=== PATIENT | female | born 1935 | race Caucasian/White ===

== ENCOUNTER 2016-04-12 18:14 | Inpatient (IN) ==
[2016-04-12] MEDS ORDERED: Albuterol 2.5 MG/3 ML NEBULIZER IH ONE (18:59)
--- NOTE | 2016-04-12 19:02 | Emergency Department Note ---
Disposition Clinical Impression: Hypokalemia Pneumonia Qualifiers: Pneumonia type: due to unspecified organism Laterality: right Lung location: lower lobe of lung Qualified Code(s): J18.1 - Lobar pneumonia, unspecified organism Disposition: Admitted As Inpatient Condition: Good Referrals: NO,PCP [Primary Care Provider] - Forms: ED Satisfaction Letter Time of Disposition: 20:05 URI/Sore Throat HPI - General Chief Complaint: ED Upper Respiratory Infection Stated Complaint: Cough, possible pneumonia Time Seen by Provider: 04/12/16 18:55 Source: patient, family Mode of arrival: ambulatory Limitations: no limitations, other Nursing Notes Reviewed: Yes Vital Signs Reviewed: Yes - History of Present Illness HPI Narrative: 80-year-old female with a 1-1/2 week history of a persistent cough and difficulty breathing. She short of breath with exertion. She said some wheezing. No chest pain. She has felt feverish at home. She is coughing up some clear sputum. She was seen in urgent care, told she had pneumonia, was told to come here for evaluation and treatment. Pt Subjective Complaint: fever, cough Onset (ago): week(s) (1.5) Duration: constant Severity: moderate Improves with: nothing Worsens with: other (Coughing) If sputum, description: clear Associated symptoms: Reports: fever Treatments prior to arrival: other (Albuterol at the care) - Related Data Home Medications Medication Instructions Recorded Confirmed Aspirin [Adult Low Dose Aspirin EC] 81 mg PO DAILY 02/25/15 04/12/16 Atorvastatin Calcium [Lipitor] 20 mg PO DAILY 02/25/15 04/12/16 Clopidogrel [Plavix] 75 mg PO DAILY 02/25/15 04/12/16 Multivitamin [Multivitamins] 1 each PO DAILY 02/25/15 04/12/16 NIFEdipine [Adalat cc] 90 mg PO DAILY 02/25/15 04/12/16 Paroxetine HCl [Paroxetine HCl] 20 mg PO DAILY 02/25/15 04/12/16 Potassium Gluconate [Potassium] 99 mg PO 3XW 02/25/15 04/12/16 Paroxetine [Paxil] 20 mg PO DAILY 04/12/16 04/12/16 Vit C/E/Zn/Coppr/Lutein/Zeaxan 04/12/16 [Preservision Areds 2 Softgel] Allergies Allergy/AdvReac Type Severity Reaction Status Date / Time metoprolol [From Toprol XL] Allergy Nausea Verified 04/12/16 17:24 All systems ED: reviewed and negative except as stated. Constitutional: Reports: fever, chills Eyes: Denies: eye discharge ENT ED: Denies: ear pain, throat pain Cardiovascular: Denies: chest pain Respiratory: Reports: cough, dyspnea, wheezes, sputum production (Clear) Gastrointestinal: Denies: abdominal pain, nausea, vomiting, diarrhea Genitourinary: Denies: urgency, dysuria, frequency Integumentary: Denies: rash URI PMH - Past Medical History Medical history: Reports: hyperlipidemia, hypertension, TIA Surgical history: Reports: cholecystectomy, KALPANA/BSO, other Psychiatric history: Reports: anxiety Family history: Reports: no significant family history - Social History Smoking Status: Never smoker Alcohol use: Reports: none Drug use: Reports: none Physical Exam - General Limitations: no limitations, other General appearance: alert, in no apparent distress - Head Head exam: atraumatic, normocephalic - Eye Eye exam: Present: PERRL, EOMI. Absent: scleral icterus, conjunctival injection - ENT ENT exam: normal oropharynx, mucous membranes moist, TM's normal bilaterally - Neck Neck exam: Present: normal inspection, full ROM, trachea midline. Absent: tenderness, lymphadenopathy - Chest Chest inspection: Present: normal inspection, symmetric chest wall rise - Respiratory Respiratory exam: Present: wheezes (Mild bilateral expiratory), other (No rales or rhonchi). Absent: respiratory distress, accessory muscle use, prolonged expiratory phase - Cardiovascular Cardiovascular exam: Present: regular rate, normal rhythm, normal heart sounds - Abdominal Exam Abdominal exam: Present: soft, Non-Tender. Absent: organomegaly, mass - Extremities Exam Extremities exam: Present: normal inspection, full ROM, normal capillary refill. Absent: pedal edema, calf tenderness - Neurological Exam Neurological exam: Present: alert, oriented X3, normal gait - Psychiatric Psychiatric exam: Present: normal affect, normal mood - Skin Skin exam: Present: warm, dry, intact. Absent: cyanosis Course - Reevaluation(s) Reevaluation #1: Discussed with Dr. Webster. He accepts for admission. Time: 20:00 Vital Signs Temperature 100 F H 04/12/16 18:22 Pulse Rate 99 04/12/16 18:22 Respiratory Rate 19 02/19/17 18:22 Blood Pressure 137/74 04/12/16 18:22 O2 Sat by Pulse Oximetry 91 L 04/12/16 18:22 Temperature 100 F H 04/12/16 18:23 Pulse Rate 99 04/12/16 18:23 Respiratory Rate 16 04/12/16 19:14 Blood Pressure 137/74 04/12/16 18:23 O2 Sat by Pulse Oximetry 87 L 04/12/16 19:14 Oxygen Delivery Oxygen Delivery Room Air Upper Respiratory Infection - MDM Narrative Medical decision making narrative: Radiographically she has a right lower lobe infiltrate on the x-ray from urgent care. She is hypoxic with O2 sats around 89-90% on room air. She will require hospitalization. She is a community-acquired pneumonia. She was put on Rocephin and azithromycin. She was given hand-held nebulizers and Solu-Medrol for her bronchospasm. I spoke with Dr. Webster and he will admit. - Differential Diagnosis Differential Diagnosis: Likely: upper respiratory infection, sinusitis, other viral infection, bronchitis, influenza, pneumonia - Lab Data Lab results reviewed: Yes I reviewed the patient's lab results. Result diagrams: 04/12/16 19:05 04/12/16 19:05 Lab Results 04/12/16 04/12/16 Range/Units 19:05 19:05 WBC 15.8 H (4.3-11.1) K/mcL RBC 4.30 (3.82-4.97) M/mcL Hgb 13.2 (11.5-15.4) g/dL Hct 37.4 (35.3-44.9) % MCV 87.0 (83.0-100.0) fL MCH 30.7 (28.0-33.3) pg MCHC 35.3 (31.6-35.5) g/dL RDW 13.2 (11.5-14.5) % Plt Count 290 (140-400) K/mcL MPV 9.4 (9.4-12.4) fL Immature Gran % 0.7 (0-4) % Seg Neutrophils % 84.0 % Lymphocytes % 9.9 % Monocytes % 5.3 % Eosinophils % 0.0 % Basophils % 0.1 % Neutrophils # 13.3 H (1.6-8.9) K/mcL Lymphocytes # 1.6 (0.6-4.6) K/mcL Monocytes # 0.8 (0.0-1.3) K/mcL Eosinophils # 0.0 (0.0-0.6) K/mcL Basophils # 0.0 (0.0-0.2) K/mcL Sodium 139 (136-145) mEq/L Potassium 2.5 L* (3.5-4.5) mEq/L Chloride 99 (98-109) mEq/L Carbon Dioxide 23 (19-29) mEq/L BUN 28 H (7-20) mg/dL Creatinine 1.84 H (0.57-1.11) mg/dL Est GFR ( Amer) 32 L (> 60) Est GFR (Non-Af Amer) 26 L (> 60) BUN/Creatinine Ratio 15 (6-26) Glucose 169 H (70-99) mg/dL Calculated Osmolality 297 (280-300) Calcium 9.7 (8.6-10.8) mg/dL Total Bilirubin 1.0 (0.2-1.2) mg/dL AST 30 (5-34) Units/L ALT 26 (0-55) Units/L Alkaline Phosphatase 102 (38-126) Units/L Serum Total Protein 7.1 (6.0-8.3) g/dL Albumin 3.0 L (3.5-5.0) g/dL Globulin 4.1 H (2.4-3.5) g/dL Albumin/Globulin Ratio 0.7 L (1.1-2.2) - Radiology Data Radiology results reviewed: Yes I reviewed the patient's radiology results. Chest x-ray, 2 view, done at urgent care shows a right lower lobe infiltrate.
[2016-04-12 19:29] LABS: Basophils % 0.1 %; Hematocrit 37.4 % (35.3-44.9); Hemoglobin 13.2 g/dL (11.5-15.4); Immature Granulocytes % 0.7 % (0-4); Lymphocytes # 1.6 K/mcL (0.6-4.6); Lymphocytes % 9.9 %; Mean Corpuscular HGB Conc 35.3 g/dL (31.6-35.5); Mean Corpuscular Hemoglobin 30.7 pg (28.0-33.3); Mean Platelet Volume 9.4 fL (9.4-12.4); Monocytes # 0.8 K/mcL (0.0-1.3); Monocytes % 5.3 %; Platelet Count 290 K/mcL (140-400); Red Cell Distribution Width 13.2 % (11.5-14.5)
[2016-04-12 19:32] LABS: Neutrophils # 13.3 K/mcL (1.6-8.9)
[2016-04-12 19:47] LABS: Albumin/Globulin Ratio 0.7 (1.1-2.2); Calcium 9.7 mg/dL (8.6-10.8); Globulin 4.1 g/dL (2.4-3.5); Total Protein 7.1 g/dL (6.0-8.3)
[2016-04-12 19:49] LABS: Potassium 2.5 mEq/L (3.5-4.5)
[2016-04-12] MEDS ORDERED: CefTRIAXone 1,000 MG in D5% in Water (Mini-Bag+) 100 ML IVPB ONE (19:57)
[2016-04-12] MEDS ORDERED: Azithromycin 500 MG in D5% in Water 250 ML IVPB ONE ×2 (19:57→20:55)
[2016-04-12] MEDS ORDERED: Naloxone 0.4 MG/ML INJ IVP PRN (20:55)
[2016-04-12] MEDS ORDERED: Azithromycin 500 MG in D5% in Water 250 ML IVPB SCH (21:00)
[2016-04-12] MEDS ORDERED: Potassium Chloride Elixir 20 MEQ/15 ML UDC PO SCH (21:00)
[2016-04-12] MEDS ORDERED: Albuterol 2.5 MG/3 ML NEBULIZER ONE (23:03)
[2016-04-12] MEDS: Albuterol 2.5 MG/3 ML NEBULIZER IH SCH (23:04)
[2016-04-13] MEDS: Albuterol 2.5 MG/3 ML NEBULIZER IH SCH ×4 (04:23→21:54)
[2016-04-13] MEDS ORDERED: PredniSONE 20 MG TABLET PO SCH (09:00)
[2016-04-13] MEDS: Aspirin Enteric Coated 81 MG Tablet PO SCH (09:24)
[2016-04-13] MEDS: Multivit/Ca/Min/Fe/FA 1 TAB TABLET PO SCH (09:24)
[2016-04-13] MEDS: Potassium Chloride Elixir 20 MEQ/15 ML UDC PO SCH ×3 (09:26→21:12)
[2016-04-13] MEDS: NIFEdipine XL (24 HR) 30 MG TAB.ER.24 PO SCH (09:27)
[2016-04-13] MEDS: CefTRIAXone 1,000 MG in D5% in Water (Mini-Bag+) 100 ML IVPB SCH (09:29)
--- NOTE | 2016-04-13 15:48 | Internal Med History&Physical ---
Date of Encounter: 04/13/16 Time of Encounter: 15:15 Assessment and Plan (1) Pneumonia Current visit: Yes Status: Acute She has been started on Rocephin and Zithromax. I will add lactobacillus. Room air oximetry will be checked prior to discharge. Qualifiers: Pneumonia type: due to unspecified organism Laterality: right Lung location: middle lobe of lung Qualified Code(s): J18.1 - Lobar pneumonia, unspecified organism (2) CKD (chronic kidney disease) stage 3, GFR 30-59 ml/min Current visit: Yes Status: Acute We will monitor renal indices. (3) Hypertension Current visit: Yes Status: Chronic Continue nifedipine and monitor blood pressure. Qualifiers: Hypertension type: essential hypertension Qualified Code(s): I10 - Essential (primary) hypertension (4) Hypokalemia Current visit: Yes Status: Acute She does not take diuretic but does use a potassium supplement. She does know the specific diagnosis requiring supplemental KCl. Continue potassium supplementation and order follow-up labs. Internal Medicine - H&P: HPI Chief complaint: Dyspnea Admitted From: Home Plans for Post Hospital Care: Home History of present illness: Ms. Trinidad is a 80 year old female who came to emergency room stating she had increasing dyspnea over the past 10 days. She reports having a cough with minimal productivity. She had fevers and chills. She went to local urgent care where chest x-ray showed right middle lobe pneumonia. She she reports she had a negative test result for influenza. She was sent to emergency room and evaluated and admitted to [facility] floor for ongoing care needs. Her respiratory history is significant for being essentially a lifelong nonsmoker and having no documented chronic lung disease. She does not wear home oxygen. Past Med Surg Social Fam HX - Past Medical History Medical history: DVT, hyperlipidemia, hypertension, TIA Psychiatric history: anxiety - Past Surgical History Surgical History: cholecystectomy, hysterectomy, KALPANA/BSO, other - Social History Smoking Status: Never smoker Smokeless Tobacco Status: No Alcohol use: none Drug use: none - Family History Father Living Status: Hx Family Neurologic Disorders: Yes Internal Medicine - H&P: Meds Aspirin [Adult Low Dose Aspirin EC] 81 mg PO DAILY 02/25/15 [History] Atorvastatin Calcium [Lipitor] 20 mg PO DAILY 02/25/15 [History] Clopidogrel [Plavix] 75 mg PO DAILY 02/25/15 [History] Multivitamin [Multivitamins] 1 each PO DAILY 02/25/15 [History] NIFEdipine [Adalat cc] 90 mg PO DAILY 02/25/15 [History] Potassium Gluconate [Potassium] 99 mg PO 3XW 02/25/15 [History] Paroxetine [Paxil] 20 mg PO DAILY 04/12/16 [History] Vit C/E/Zn/Coppr/Lutein/Zeaxan [Preservision Areds 2 Softgel] PO QDPC 04/12/16 [History] Allergies metoprolol [From Toprol XL] Allergy (Verified 04/12/16 17:24) Nausea All Systems PM: A 10-system review of systems was performed and is negative for pertinent findings except as documented above in the HPI. Review of systems: Gen.: She states her weight is decreased 5 pounds in the past year Cardiovascular: She has history of hypertension. She reports a DVT 20 years ago in her leg. She denies ID heart failure or pulmonary embolism. Respiratory: As per history of present illness GI: She has had cholecystectomy. She denies disorders of her liver or exocrine pancreas. 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 She denies other kidney or bladder disorders Neurologic: She reports having "mini strokes" without permanent sequelae in the past. She denies large distribution strokes or seizures Endocrine: She was told she was "prediabetic". She has hyperlipidemia but denies thyroid disease Hematology/oncology: She denies blood disorders cancers or anemia Psychiatric: She has anxiety with panic attacks. She denies significant depression or other mental health issues Musk skeletal: She has DJD a diagnosis of osteoporosis. She denies gout or other bone joint or muscle disorders. - Constitutional Vitals: Temp Pulse Resp BP Pulse Ox 97.8 F 95 18 130/63 95 04/13/16 11:29 04/13/16 11:29 04/13/16 11:29 04/13/16 11:29 04/13/16 11:30 Exam: Gen.: She is a well-developed well-nourished female who appears in no severe distress at present time HEENT: Head is atraumatic and normocephalic. Eyes: EOMI. There is no scleral icterus. Mouth: Mucosa is moist. Neck: Supple and nontender. There is no thyromegaly or adenopathy noted. Heart: Regular without murmurs gallops or ectopics Lungs: No wheezes crackles or egophony are heard Abdomen: Soft and nontender. No masses or guarding are noted. Extremities: There is no cyanosis edema or clubbing noted. Dorsalis pedis and posttibial pulses are trace palpable bilaterally. Neurologic: Mental status: She is talkative and a good historian. Cranial nerves: Smile is symmetric. Forehead wrinkles bilaterally. Tongue protrudes midline. EOMI. Motor: There is no pronator drift. Cerebellar: Finger to nose is intact bilaterally. Skin: Warm and dry Internal Med - H&P Results - Labs CBC & Chem 7: 04/12/16 19:05 04/12/16 19:05 - VTE Documentation of Mechanical Device: Graduated compression elastic hosiery
[2016-04-13] MEDS: *HR* Enoxaparin 30 MG/0.3 ML SYRINGE SQ SCH (18:40)
[2016-04-13] MEDS ORDERED: Azithromycin 500 MG in D5% in Water 250 ML IVPB SCH (21:00)
[2016-04-13] MEDS: Lactobacillus 1 EACH CAP.SPRINK PO SCH (21:12)
[2016-04-14] MEDS: Albuterol 2.5 MG/3 ML NEBULIZER IH SCH ×2 (05:27→09:50)
[2016-04-14] MEDS: *HR* Enoxaparin 30 MG/0.3 ML SYRINGE SQ SCH (05:59)
[2016-04-14 06:01] LABS: Basophils % 0.2 %; Hematocrit 40.2 % (35.3-44.9); Hemoglobin 14.1 g/dL (11.5-15.4); Immature Granulocytes % 0.7 % (0-4); Lymphocytes # 1.2 K/mcL (0.6-4.6); Lymphocytes % 4.8 %; Mean Corpuscular HGB Conc 35.1 g/dL (31.6-35.5); Mean Corpuscular Hemoglobin 30.5 pg (28.0-33.3); Mean Corpuscular Volume 86.8 fL (83.0-100.0); Mean Platelet Volume 9.9 fL (9.4-12.4); Monocytes % 4.1 %; Neutrophils # 22.7 K/mcL (1.6-8.9); Platelet Count 399 K/mcL (140-400); Red Blood Count 4.63 M/mcL (3.82-4.97); Red Cell Distribution Width 13.5 % (11.5-14.5); Segmented Neutrophils % 90.2 %
[2016-04-14 06:07] LABS: Basophils # 0.1 K/mcL (0.0-0.2)
[2016-04-14 06:18] LABS: Calcium 10.6 mg/dL (8.6-10.8); Magnesium 2.8 mg/dL (1.6-2.6); Potassium 3.7 mEq/L (3.5-4.5)
[2016-04-14 06:40] LABS: Thyroid Stimulating Hormone 0.653 mcIU/mL (0.350-4.840)
[2016-04-14 07:30] VITALS: BP 154/77
[2016-04-14] MEDS: Lactobacillus 1 EACH CAP.SPRINK PO SCH (08:04)
[2016-04-14] MEDS: Aspirin Enteric Coated 81 MG Tablet PO SCH (08:04)
[2016-04-14] MEDS: NIFEdipine XL (24 HR) 30 MG TAB.ER.24 PO SCH (08:05)
[2016-04-14] MEDS: Potassium Chloride Elixir 20 MEQ/15 ML UDC PO SCH (08:05)
[2016-04-14] MEDS: Multivit/Ca/Min/Fe/FA 1 TAB TABLET PO SCH (08:05)
[2016-04-14] MEDS: CefTRIAXone 1,000 MG in D5% in Water (Mini-Bag+) 100 ML IVPB SCH (08:09)
--- NOTE | 2016-04-14 10:33 | Discharge Summary ---
Date of Encounter: 04/14/16 Time of Encounter: 10:20 - Discharge Diagnosis (1) Pneumonia Priority: Primary Status: Acute Qualifiers: Pneumonia type: due to unspecified organism Laterality: right Lung location: middle lobe of lung Qualified Code(s): J18.1 - Lobar pneumonia, unspecified organism (2) CKD (chronic kidney disease) stage 3, GFR 30-59 ml/min Priority: Secondary Status: Acute (3) Hypertension Priority: Secondary Status: Chronic Qualifiers: Hypertension type: essential hypertension Qualified Code(s): I10 - Essential (primary) hypertension (4) Hypokalemia Priority: Secondary Status: Resolved - Discharge Medications Prescriptions: Cefuroxime PO [Ceftin] 500 mg PO Q12HR #10 tablet Azithromycin [Zithromax] 250 mg PO DAILY #5 tablet Lactobacillus [Culturelle] 1 each PO BID #10 cap.sprink Home Medications: Aspirin [Adult Low Dose Aspirin EC] 81 mg PO DAILY 02/25/15 [History] Atorvastatin Calcium [Lipitor] 20 mg PO DAILY 02/25/15 [History] Clopidogrel [Plavix] 75 mg PO DAILY 02/25/15 [History] Multivitamin [Multivitamins] 1 each PO DAILY 02/25/15 [History] NIFEdipine [Adalat cc] 90 mg PO DAILY 02/25/15 [History] Potassium Gluconate [Potassium] 99 mg PO 3XW 02/25/15 [History] Paroxetine [Paxil] 20 mg PO DAILY 04/12/16 [History] Vit C/E/Zn/Coppr/Lutein/Zeaxan [Preservision Areds 2 Softgel] PO QDPC 04/12/16 [History] Azithromycin [Zithromax] 250 mg PO DAILY #5 tablet 04/14/16 [Rx] Cefuroxime PO [Ceftin] 500 mg PO Q12HR #10 tablet 04/14/16 [Rx] Lactobacillus [Culturelle] 1 each PO BID #10 cap.sprink 04/14/16 [Rx] Allergies/Adverse Reactions: Allergies metoprolol [From Toprol XL] Allergy (Verified 04/12/16 17:24) Nausea Date of admission: 04/13/16 15:57 Primary care physician: PCP NO - Patient Status Disposition: Home, Self-Care Condition: Good Overall status at discharge: patient is progressing back to baseline - Discharge Instructions - Diet and Activity Activity: resume usual activities as tolerated Diet: advance to your usual diet Hospital course: Ms. Trinidad is a 80 year old female who came to emergency room stating she had increasing dyspnea over the past 10 days. She reports having a cough with minimal productivity. She had fevers and chills. She went to local urgent care where chest x-ray showed right middle lobe pneumonia. She she reports she had a negative test result for influenza. She was sent to emergency room and evaluated and admitted to [facility] for ongoing care needs. Initial orders were written by the emergency room physician. I saw her on April 13 and performed the history and physical. She was started on Rocephin and Zithromax IV. I added lactobacillus. She received a dose of prednisone 60 mg in emergency room. I did not continue steroids. Follow-up lab work on April 14 showed WBC rising to 25.2K with 90.2% segs. She had a rise in creatinine to 2.45 with estimated GFR dropping to 19. TSH was normal at 0.653. Magnesium was minimally elevated at 2.8. I discussed her WBC and worsening azotemia with her on . She felt clinically improved however and stable for discharge home. She will follow with her primary care provider later today who can address further treatment plans with her. She will be prescribed 5 additional days of Ceftin and Zithromax with the probiotic lactobacillus. She was given supplemental potassium and hyperkalemia resolved with potassium level rising to 3.7 on the day of discharge. Room air oximetry on 6 minute walk showed adequate oxygenation without need for supplemental O2. - Time Spent with Patient Total time spent providing and/or coordinating discharge services: - Constitutional Vitals: Temp Pulse Resp BP Pulse Ox 98.4 F 96 18 154/77 96 04/14/16 07:26 04/14/16 07:26 04/14/16 09:50 04/14/16 07:26 04/14/16 09:50 - VTE Documentation of Mechanical Device: Graduated compression elastic hosiery
== END 2016-04-14 11:05 | disposition home or self-care (01) | DRG 195 ==
LOC: INPPIK 18:14 → EMEROOPIK 18:14 → INPPIK 20:35
PROVIDERS: ADMIT Internal Medicine; ATTEND Internal Medicine

== ENCOUNTER 2019-01-13 15:21 | Observation (INO) ==
[2019-01-13] MEDS ORDERED: Ondansetron 4 MG/2 ML VIAL IVP ONE (15:29)
[2019-01-13 16:16] LABS: Basophils # 0.1 K/mcL (0.0-0.2); Basophils % 0.6 %; Eosinophils # 0.4 K/mcL (0.0-0.6); Eosinophils % 3.4 %; Hematocrit 40.2 % (35.3-44.9); Hemoglobin 13.4 g/dL (11.5-15.4); Immature Granulocytes % 0.3 % (0-4); Lymphocytes # 3.1 K/mcL (0.6-4.6); Lymphocytes % 29.4 %; Mean Corpuscular HGB Conc 33.3 g/dL (31.6-35.5); Mean Corpuscular Hemoglobin 30.6 pg (28.0-33.3); Mean Corpuscular Volume 91.8 fL (83.0-100.0); Mean Platelet Volume 10.1 fL (9.4-12.4); Monocytes # 0.5 K/mcL (0.0-1.3); Monocytes % 4.7 %; Neutrophils # 6.6 K/mcL (1.6-8.9); Platelet Count 246 K/mcL (140-400); Red Blood Count 4.38 M/mcL (3.82-4.97); Red Cell Distribution Width 13.4 % (11.5-14.5); Segmented Neutrophils % 61.6 %; White Blood Count 10.6 K/mcL (4.3-11.1)
[2019-01-13 16:23] LABS: INR 0.9; Prothrombin Time 10.5 Seconds (9.4-12.1)
[2019-01-13 16:34] LABS: BUN/Creatinine Ratio 25 (6-26); Blood Urea Nitrogen 31 mg/dL (8-23); Calcium 9.3 mg/dL (8.6-10.3); Carbon Dioxide 27 mEq/L (23-29); Chloride 103 mEq/L (98-107); Glucose 157 mg/dL (70-105); Osmolality,Calculated 302 (280-300); Potassium 2.9 mEq/L (3.5-5.1); Sodium 141 mEq/L (136-145); eGFR For African Americans 51 (> 60); eGFR For Non-African Americans 42 (> 60)
[2019-01-13 16:35] LABS: Troponin I < 0.03 ng/mL (< 0.04)
[2019-01-13] MEDS ORDERED: 0.9 % Sodium Chloride 1,000 ML IVC SCH ×3 (17:00→19:43)
[2019-01-13 17:35] LABS: Anisocytosis 1+ (Not Present); Platelet Clumps Few (Not Present); Platelet Estimate Normal (Normal)
[2019-01-13 17:45] LABS: Bilirubin,Urine Negative (Negative); Blood,Urine Trace-intact (Negative); Clarity,Urine Clear (Clear); Color,Urine Yellow (Yellow); Glucose,Urine (UA) 100 mg/dL (Normal); Ketones,Urine Negative (Negative); Leukocyte Esterase,Urine Negative (Negative); Nitrite,Urine Negative (Negative); Protein,Urine 30 mg/dL (Neg-Trace); Urobilinogen,Urine Normal (Normal)
[2019-01-13 17:54] LABS: Bacteria,Urine Moderate per hpf (None-Few); RBC,Urine 0-3 per hpf (0-3); Squamous Epithelial Cell,Urine Moderate per lpf (None-Few)
[2019-01-13] MEDS ORDERED: *HR* Promethazine 25 MG/ML VIAL IVP ONE (18:12)
[2019-01-13] MEDS ORDERED: *HR* Promethazine 25 MG/ML VIAL IVP PRN ×2 (18:19→20:34)
[2019-01-13] MEDS: 0.9 % Sodium Chloride 1,000 ML IVC SCH (20:53)
[2019-01-14] MEDS: 0.9 % Sodium Chloride 1,000 ML IVC SCH (01:39)
[2019-01-14 05:45] LABS: BUN/Creatinine Ratio 24 (6-26); Blood Urea Nitrogen 23 mg/dL (8-23); Calcium 8.2 mg/dL (8.6-10.3); Carbon Dioxide 27 mEq/L (23-29); Chloride 111 mEq/L (98-107); Glucose 100 mg/dL (70-105); Osmolality,Calculated 306 (280-300); Potassium 3.2 mEq/L (3.5-5.1); Sodium 146 mEq/L (136-145); eGFR For African Americans > 60 (> 60); eGFR For Non-African Americans 55 (> 60)
[2019-01-14] MEDS: Multivit/Ca/Min/Fe/FA 1 TAB TABLET PO SCH (08:13)
[2019-01-14] MEDS: Aspirin Enteric Coated 81 MG Tablet PO SCH (08:13)
[2019-01-14] MEDS: NIFEdipine XL (24 HR) 30 MG TAB.ER.24 PO SCH (08:13)
[2019-01-14] MEDS: (Preservision Areds 2) PO SCH (08:14)
[2019-01-14] MEDS: 0.45 % Sodium Chloride w/KCl 20 MEQ/1,000 ML MLS IVC SCH (10:35)
[2019-01-15] MEDS: 0.45 % Sodium Chloride w/KCl 20 MEQ/1,000 ML MLS IVC SCH ×2 (01:17→10:34)
[2019-01-15 06:36] LABS: Basophils % 0.5 %; Eosinophils # 0.6 K/mcL (0.0-0.6); Eosinophils % 7.1 %; Hematocrit 38.1 % (35.3-44.9); Hemoglobin 12.6 g/dL (11.5-15.4); Immature Granulocytes % 0.2 % (0-4); Lymphocytes # 2.4 K/mcL (0.6-4.6); Lymphocytes % 27.5 %; Mean Corpuscular HGB Conc 33.1 g/dL (31.6-35.5); Mean Corpuscular Hemoglobin 30.8 pg (28.0-33.3); Mean Corpuscular Volume 93.2 fL (83.0-100.0); Monocytes # 0.7 K/mcL (0.0-1.3); Monocytes % 7.4 %; Neutrophils # 5.1 K/mcL (1.6-8.9); Platelet Count 239 K/mcL (140-400); Red Blood Count 4.09 M/mcL (3.82-4.97); Red Cell Distribution Width 13.5 % (11.5-14.5); Segmented Neutrophils % 57.3 %; White Blood Count 8.9 K/mcL (4.3-11.1)
[2019-01-15 06:55] LABS: BUN/Creatinine Ratio 17 (6-26); Blood Urea Nitrogen 13 mg/dL (8-23); Calcium 7.8 mg/dL (8.6-10.3); Carbon Dioxide 29 mEq/L (23-29); Chloride 109 mEq/L (98-107); Glucose 94 mg/dL (70-105); Osmolality,Calculated 298 (280-300); Potassium 3.1 mEq/L (3.5-5.1); Sodium 144 mEq/L (136-145); eGFR For African Americans > 60 (> 60); eGFR For Non-African Americans > 60 (> 60)
[2019-01-15 06:58] VITALS: BP 164/85
[2019-01-15 07:44] LABS: Thyroid Stimulating Hormone 1.736 mcIU/mL (0.340-5.600)
[2019-01-15] MEDS: Multivit/Ca/Min/Fe/FA 1 TAB TABLET PO SCH (08:46)
[2019-01-15] MEDS: NIFEdipine XL (24 HR) 30 MG TAB.ER.24 PO SCH (08:46)
[2019-01-15] MEDS: (Preservision Areds 2) PO SCH (08:47)
[2019-01-15] MEDS: Aspirin Enteric Coated 81 MG Tablet PO SCH (08:47)
== END 2019-01-15 11:35 | disposition home or self-care (01) ==
LOC: EMEROOPIK 15:21 → INPPIK 15:21
PROVIDERS: ADMIT Internal Medicine; ATTEND Internal Medicine

== ENCOUNTER 2020-05-16 12:38 | Inpatient (IN) ==
[2020-05-16] MEDS ORDERED: *HR* HYDROcodone/Acet 5/325 mg TABLET PO PRN (13:58)
[2020-05-16] MEDS: carvediloL 6.25 MG TABLET PO SCH (17:01)
[2020-05-17 04:21] LABS: Basophils % 0.3 %; Eosinophils # 0.7 K/mcL (0.0-0.6); Hematocrit 34.8 % (35.3-44.9); Hemoglobin 11.7 g/dL (11.5-15.4); Immature Granulocytes % 0.2 % (0-4); Lymphocytes # 2.6 K/mcL (0.6-4.6); Lymphocytes % 29.4 %; Mean Corpuscular HGB Conc 33.6 g/dL (31.6-35.5); Mean Corpuscular Hemoglobin 30.5 pg (28.0-33.3); Mean Corpuscular Volume 90.9 fL (83.0-100.0); Mean Platelet Volume 9.7 fL (9.4-12.4); Monocytes # 0.6 K/mcL (0.0-1.3); Monocytes % 7.1 %; Neutrophils # 4.8 K/mcL (1.6-8.9); Platelet Count 279 K/mcL (140-400); Red Blood Count 3.83 M/mcL (3.82-4.97); Red Cell Distribution Width 13.7 % (11.5-14.5); White Blood Count 8.8 K/mcL (4.3-11.1)
[2020-05-17 05:35] LABS: BUN/Creatinine Ratio 23 (6-26); Blood Urea Nitrogen 22 mg/dL (8-23); Calcium 8.5 mg/dL (8.6-10.3); Carbon Dioxide 29 mEq/L (23-29); Chloride 105 mEq/L (98-107); Glucose 121 mg/dL (70-105); Osmolality,Calculated 301 (280-300); Potassium 2.8 mEq/L (3.5-5.1); Sodium 143 mEq/L (136-145); eGFR For African Americans > 60 (> 60); eGFR For Non-African Americans 55 (> 60)
[2020-05-17] MEDS: NIFEdipine XL (24 HR) 30 MG TAB.ER.24 PO SCH (09:31)
[2020-05-17] MEDS: carvediloL 6.25 MG TABLET PO SCH ×2 (09:31→16:22)
[2020-05-17] MEDS: PARoxetine 20 MG TABLET PO SCH (09:31)
[2020-05-17] MEDS: Aspirin Enteric Coated 81 MG Tablet PO SCH (09:32)
[2020-05-17] MEDS: [UNRECOGNIZED DRUG - OTHER] PO SCH (09:32)
[2020-05-17] MEDS: Cholecalciferol (D-3) 1,000 UNIT (25MCG) TABLET PO SCH (09:32)
[2020-05-17] MEDS: Multivit/Ca/Min/Fe/FA 1 TAB TABLET PO SCH (09:32)
[2020-05-17] MEDS: Sennosides/Docusate Sodium TABLET PO SCH ×2 (11:44→21:29)
[2020-05-17] MEDS: *HR* Heparin 5,000 UNIT/ML VIAL SQ SCH (21:29)
[2020-05-18] MEDS: *HR* Heparin 5,000 UNIT/ML VIAL SQ SCH ×3 (06:27→21:36)
[2020-05-18] MEDS: [UNRECOGNIZED DRUG - OTHER] PO SCH (09:41)
[2020-05-18] MEDS: Aspirin Enteric Coated 81 MG Tablet PO SCH (09:43)
[2020-05-18] MEDS: PARoxetine 20 MG TABLET PO SCH (09:43)
[2020-05-18] MEDS: Cholecalciferol (D-3) 1,000 UNIT (25MCG) TABLET PO SCH (09:43)
[2020-05-18] MEDS: Sennosides/Docusate Sodium TABLET PO SCH ×2 (09:43→21:36)
[2020-05-18] MEDS: Multivit/Ca/Min/Fe/FA 1 TAB TABLET PO SCH (09:43)
[2020-05-18] MEDS: NIFEdipine XL (24 HR) 30 MG TAB.ER.24 PO SCH (09:44)
[2020-05-18] MEDS: carvediloL 6.25 MG TABLET PO SCH ×2 (09:44→17:13)
[2020-05-18 09:50] LABS: Alanine Aminotransferase 16 Units/L (7-52); Albumin 3.1 g/dL (3.5-5.7); Albumin/Globulin Ratio 1.1 (1.1-2.2); Alkaline Phosphatase 107 Units/L (34-104); Aspartate Amino Transferase 14 Units/L (13-39); BUN/Creatinine Ratio 20 (6-26); Bilirubin,Total 0.5 mg/dL (0.3-1.0); Blood Urea Nitrogen 18 mg/dL (8-23); Carbon Dioxide 30 mEq/L (23-29); Chloride 108 mEq/L (98-107); Globulin 2.7 g/dL (2.4-3.5); Glucose 124 mg/dL (70-105); Magnesium 2.3 mg/dL (1.6-2.6); Osmolality,Calculated 305 (280-300); Phosphorous 2.1 mg/dL (2.7-4.5); Potassium 3.6 mEq/L (3.5-5.1); Sodium 146 mEq/L (136-145); Total Protein 5.8 g/dL (6.4-8.9); eGFR For African Americans > 60 (> 60); eGFR For Non-African Americans 59 (> 60)
[2020-05-18 10:00] LABS: Vitamin B12 411 pg/mL (250-1100)
[2020-05-18 10:43] LABS: Vitamin D 25 Hydroxy 32 ng/mL (30-80)
[2020-05-19] MEDS: *HR* Heparin 5,000 UNIT/ML VIAL SQ SCH ×3 (06:55→20:24)
[2020-05-19] MEDS: Aspirin Enteric Coated 81 MG Tablet PO SCH (08:54)
[2020-05-19] MEDS: Multivit/Ca/Min/Fe/FA 1 TAB TABLET PO SCH (08:54)
[2020-05-19] MEDS: carvediloL 6.25 MG TABLET PO SCH ×2 (08:54→17:01)
[2020-05-19] MEDS: NIFEdipine XL (24 HR) 30 MG TAB.ER.24 PO SCH (08:54)
[2020-05-19] MEDS: Sennosides/Docusate Sodium TABLET PO SCH ×2 (08:54→20:24)
[2020-05-19] MEDS: Cholecalciferol (D-3) 1,000 UNIT (25MCG) TABLET PO SCH (08:54)
[2020-05-19] MEDS: [UNRECOGNIZED DRUG - OTHER] PO SCH (08:55)
[2020-05-19] MEDS: PARoxetine 20 MG TABLET PO SCH (08:55)
[2020-05-20] MEDS: *HR* Heparin 5,000 UNIT/ML VIAL SQ SCH ×3 (06:07→22:11)
[2020-05-20] MEDS: Multivit/Ca/Min/Fe/FA 1 TAB TABLET PO SCH (09:01)
[2020-05-20] MEDS: PARoxetine 20 MG TABLET PO SCH (09:01)
[2020-05-20] MEDS: Cholecalciferol (D-3) 1,000 UNIT (25MCG) TABLET PO SCH (09:02)
[2020-05-20] MEDS: carvediloL 6.25 MG TABLET PO SCH ×2 (09:03→17:02)
[2020-05-20] MEDS: NIFEdipine XL (24 HR) 30 MG TAB.ER.24 PO SCH (09:04)
[2020-05-20] MEDS: Aspirin Enteric Coated 81 MG Tablet PO SCH (09:06)
[2020-05-20] MEDS: Sennosides/Docusate Sodium TABLET PO SCH ×2 (09:07→22:11)
[2020-05-20] MEDS: [UNRECOGNIZED DRUG - OTHER] PO SCH (09:08)
[2020-05-21] MEDS: *HR* Heparin 5,000 UNIT/ML VIAL SQ SCH (05:59)
[2020-05-21] MEDS: carvediloL 6.25 MG TABLET PO SCH ×2 (07:21→16:58)
[2020-05-21] MEDS: Sennosides/Docusate Sodium TABLET PO SCH ×2 (09:37→22:33)
[2020-05-21] MEDS: PARoxetine 20 MG TABLET PO SCH (09:38)
[2020-05-21] MEDS: Cholecalciferol (D-3) 1,000 UNIT (25MCG) TABLET PO SCH (09:38)
[2020-05-21] MEDS: Aspirin Enteric Coated 81 MG Tablet PO SCH (09:38)
[2020-05-21] MEDS: Multivit/Ca/Min/Fe/FA 1 TAB TABLET PO SCH (09:38)
[2020-05-21] MEDS: NIFEdipine XL (24 HR) 30 MG TAB.ER.24 PO SCH (09:40)
[2020-05-21] MEDS: [UNRECOGNIZED DRUG - OTHER] PO SCH (09:42)
[2020-05-22] MEDS: [UNRECOGNIZED DRUG - OTHER] PO SCH (09:41)
[2020-05-22] MEDS: Sennosides/Docusate Sodium TABLET PO SCH ×2 (12:13→20:35)
[2020-05-22] MEDS: Multivit/Ca/Min/Fe/FA 1 TAB TABLET PO SCH (12:13)
[2020-05-22] MEDS: NIFEdipine XL (24 HR) 30 MG TAB.ER.24 PO SCH (12:13)
[2020-05-22] MEDS: Cholecalciferol (D-3) 1,000 UNIT (25MCG) TABLET PO SCH (12:13)
[2020-05-22] MEDS: PARoxetine 20 MG TABLET PO SCH (12:13)
[2020-05-22] MEDS: Aspirin Enteric Coated 81 MG Tablet PO SCH (12:13)
[2020-05-22] MEDS: carvediloL 6.25 MG TABLET PO SCH ×2 (12:17→17:57)
[2020-05-23] MEDS: Sennosides/Docusate Sodium TABLET PO SCH ×2 (10:11→20:18)
[2020-05-23] MEDS: Multivit/Ca/Min/Fe/FA 1 TAB TABLET PO SCH (10:11)
[2020-05-23] MEDS: Cholecalciferol (D-3) 1,000 UNIT (25MCG) TABLET PO SCH (10:11)
[2020-05-23] MEDS: NIFEdipine XL (24 HR) 30 MG TAB.ER.24 PO SCH (10:11)
[2020-05-23] MEDS: Aspirin Enteric Coated 81 MG Tablet PO SCH (10:11)
[2020-05-23] MEDS: PARoxetine 20 MG TABLET PO SCH (10:11)
[2020-05-23] MEDS: carvediloL 6.25 MG TABLET PO SCH ×2 (10:12→20:20)
[2020-05-23] MEDS: [UNRECOGNIZED DRUG - OTHER] PO SCH (10:12)
[2020-05-24 07:06] VITALS: BP 169/76
[2020-05-24] MEDS: PARoxetine 20 MG TABLET PO SCH (10:04)
[2020-05-24] MEDS: Multivit/Ca/Min/Fe/FA 1 TAB TABLET PO SCH (10:04)
[2020-05-24] MEDS: NIFEdipine XL (24 HR) 30 MG TAB.ER.24 PO SCH (10:04)
[2020-05-24] MEDS: Aspirin Enteric Coated 81 MG Tablet PO SCH (10:05)
[2020-05-24] MEDS: Sennosides/Docusate Sodium TABLET PO SCH (10:05)
[2020-05-24] MEDS: carvediloL 6.25 MG TABLET PO SCH (10:05)
[2020-05-24] MEDS: Cholecalciferol (D-3) 1,000 UNIT (25MCG) TABLET PO SCH (10:05)
[2020-05-24] MEDS: [UNRECOGNIZED DRUG - OTHER] PO SCH (10:05)
== END 2020-05-24 15:00 | disposition home health service (06) | DRG 946 ==
LOC: INPPIK 12:40
PROVIDERS: ADMIT Family Medicine; ATTEND Family Medicine